=== PATIENT | male | born 1985 | race Caucasian/White ===

== ENCOUNTER 2017-07-27 20:48 | Emergency (ER) | payer OTHER ==
[~2017-07-27] VITALS: Ht 185.4 cm; Wt 120.0 kg
[2017-07-27] MEDS ORDERED: SODIUM CHLORIDE 0.9% 1,000ML IVBOLUS ONE (21:30)
[2017-07-27] MEDS ORDERED: PLEASE ENTER ALLERGIES MC SCH ×2 (21:30)
[2017-07-27] MEDS ORDERED: LORazepam 2 MG/ML, 1ML IVPush ONE ×2 (21:30→23:30)
[2017-07-27 21:42] LABS: HEMATOCRIT 47.2 % (39.2-51.8); HEMOGLOBIN 16.1 g/dL (13.7-18.0); WHITE BLOOD COUNT 9.9 x10^3/uL (3.4-10)
[2017-07-27 21:53] LABS: ASPARTATE AMINO TRANSFERASE 26 U/L (15-37); BLOOD UREA NITROGEN 19 mg/dL (7-18)
[2017-07-27] MEDS ORDERED: LORazepam 2 MG/ML, 1ML ONE (21:55)
[2017-07-27 21:58] LABS: ACETAMINOPHEN < 2 mcg/mL (10-30)
[2017-07-27 23:26] LABS: DAU SCREEN DISCLAIMER
[2017-07-27] MEDS ORDERED: ZIPRASIDONE 20 MG INJ IM ONE (23:30)
[2017-07-28 00:02] VITALS: BP 151/88
== END 2017-07-28 01:20 | disposition home or self-care (01) ==
LOC: ED 21:17
DX: T65.91XA Toxic effect of unspecified substance, accidental (unintentional), initial encounter (principal); Y92.89 Other specified places as the place of occurrence of the external cause; F15.10 Other stimulant abuse, uncomplicated; F10.20 Alcohol dependence, uncomplicated; F15.20 Other stimulant dependence, uncomplicated
CPT/HCPCS: 36415; 80053; 80307; 80329; 81003; 85025; 93005; 96361; 96374; 96375; 99285; J2060; J7030; G0479; G0480